=== PATIENT | female | born 1985 | race Caucasian/White ===

== ENCOUNTER 2023-05-28 22:31 | Emergency (ER) | payer BC, SELFPAY ==
[2023-05-28 22:35] VITALS: BP 121/84; PULSE 81; RESP 16; TEMP 36.3; O2SAT 97; BMI 26.6
--- NOTE | 2023-05-28 22:55 | ED_ITS ---
HPI - General Adult General Chief complaint: Skin/Abscess/Foreign Body Stated complaint: cannot pull out tampon Time Seen by Provider: 05/28/23 22:33 History of Present Illness HPI narrative: put in a tampon around 1600, cannot feel the tampon now and is concerned it is stuck in her. tampon did not fall out but now she states she cant find 38-year-old woman presenting to the emergency department with concern of retained tampon. She placed 1 about 6 hours ago and can not seem to find it. She does not recall it falling out. Is not having any pain. No unusual discharge otherwise. She is embarrassed that she has to come to the emergency department for this matter. Related Data Home Medications Medication Instructions Recorded Confirmed No Known Home Medications 05/28/23 05/28/23 Allergies Allergy/AdvReac Type Severity Reaction Status Date / Time No Known Drug Allergies Allergy Verified 05/28/23 22:38 Review of Systems Status of ROS: Reports: 6 or more systems reviewed and unremarkable except as noted in History and below [facility] Medical History No significant past medical history Surgical History No significant past surgical history Social History Smoking Status: Never smoker Second hand tobacco smoke exposure: No How often do you have a drink containing alcohol: never How often do you have six or more drinks on one occasion: Never AUDIT-C Alcohol total score: 0 Non-prescribed substance use: denies use Exam Narrative: Exam Narrative: Pleasant. NAD. Skin is warm and dry. Abdomen is soft nontender. Breathing easily. With nursing present we do a speculum exam. Cervix is visualized with small endometrial tissue consistent with menses. There is no significant menstrual blood at this time. I do not appreciate any abnormality in the vagina or labia. I am not able to locate any retained foreign body/tampon. Const: Vital Signs, click to edit/add: Vital Signs - 24 hr 05/28/23 22:35 Temperature 97.3 F L Pulse Rate [Pulse Oximeter] 81 Respiratory Rate 16 Blood Pressure [Ri ght Upper Arm] 121/84 Pulse Oximetry 97 Oxygen Delivery Me thod Room Air Documenting provider has reviewed patient's vital signs: yes Course Vital Signs Vital signs: Initial Vital Signs Temperature 97.3 F L 05/28/23 22:35 Temperature Source Temporal Artery Scan 05/28/23 22:35 Pulse Rate 81 05/28/23 22:35 Respiratory Rate 16 05/28/23 22:35 Blood Pressure 121/84 05/28/23 22:35 Blood Pressure Mean 96 05/28/23 22:35 Blood Pressure Position Supine 05/28/23 22:35 Pulse Oximetry 97 05/28/23 22:35 Oxygen Delivery Method Room Air 05/28/23 22:35 Vital Signs Temperature 97.3 F L 05/28/23 22:35 Pulse Rate 81 05/28/23 22:35 Respiratory Rate 16 05/28/23 22:35 Blood Pressure 121/84 05/28/23 22:35 Pulse Oximetry 97 05/28/23 22:35 Oxygen Delivery Method Room Air 05/28/23 22:35 Temperature 98.0 F 05/28/23 23:29 Pulse Rate 79 05/28/23 23:29 Respiratory Rate 16 05/28/23 23:29 Blood Pressure 118/74 05/28/23 23:29 Pulse Oximetry 97 05/28/23 23:29 Oxygen Delivery Method Room Air 05/28/23 23:29 Medical Decision Making MDM Narrative Medical decision making narrative: Will simply need to do a speculum exam for retained foreign body. See exam See patient discharge plan Discharge Plan Discharge Clinical Impression: No foreign body found on evaluation Patient Disposition: Home, Self-Care Condition: Stable Additional Instructions: Monitor for increasing discomfort, any unusual discharge, certainly fever. Return as needed. Prescriptions: No Action No Known Home Medications Follow Up/Referrals: Provider,Not a Local [Primary Care Provider] - Stand Alone Forms: [employer] Info Instructions
[2023-05-28 23:29] VITALS: BP 118/74; PULSE 79; RESP 16; TEMP 36.7; O2SAT 97
== END 2023-05-28 23:30 | disposition home or self-care (01) ==
PROVIDERS: Emergency Provider Family Medicine
DX: Z71.1 Person with feared health complaint in whom no diagnosis is made (principal)
CPT/HCPCS: 99282; 99283